=== PATIENT | female | born 1940 | race Two or more races ===

== ENCOUNTER → 2019-08-15 | Outpatient (CLI) | payer OTHER, MEDICAID | END | disposition home or self-care (01) | LOC: Rad HDHVI 14:12 | PROVIDERS: ATTEND Internal Medicine | DX: I07.1 Rheumatic tricuspid insufficiency (principal); I49.9 Cardiac arrhythmia, unspecified; R07.9 Chest pain, unspecified; R00.2 Palpitations | CPT/HCPCS: 93306 ==

== ENCOUNTER → 2020-10-01 | Outpatient (CLI) | payer OTHER, MEDICAID | END | disposition home or self-care (01) | LOC: Rad HDHVI 13:35 | PROVIDERS: ATTEND Internal Medicine | DX: I07.1 Rheumatic tricuspid insufficiency (principal); I49.9 Cardiac arrhythmia, unspecified; R00.2 Palpitations | CPT/HCPCS: 93306 ==

== ENCOUNTER → 2020-10-07 | Outpatient (CLI) | payer OTHER, MEDICAID ==
[~2020-10-07] VITALS: Ht 157.5 cm; Wt 54.4 kg
[~2020-10-07] MED LIST: ADENOSINE 46 MG in GIVE UN-DILUTED 0 ML IV ONE; ADENOSINE 90 MG/30 ML INJ IV ONE
== END | disposition home or self-care (01) ==
LOC: Rad HDHVI 12:54
PROVIDERS: ATTEND Internal Medicine
DX: R00.2 Palpitations (principal); R07.9 Chest pain, unspecified; R06.02 Shortness of breath; I10 Essential (primary) hypertension; I49.9 Cardiac arrhythmia, unspecified
CPT/HCPCS: 78452; 93005; 96374; 96375; A9500; J0153

== ENCOUNTER 2021-11-11 11:30 | Emergency (ER) | payer OTHER, MEDICAID ==
[~2021-11-11] VITALS: Ht 167.6 cm; Wt 49.9 kg
[2021-11-11 12:31] LABS: Basophils # (auto) 0.1 10 ^3/uL (0-0.2); Basophils % (auto) 1.2 % (0.0-2.0); Eosinophils # (auto) 0.1 10 ^3/uL (0-0.8); Eosinophils % (auto) 1.7 % (0.0-7.0); Hematocrit 44.7 % (36.0-46.0); Hemoglobin 14.8 g/dL (12.2-16.2); Lymphocytes # (auto) 1.2 10 ^3/uL (0.4-5.4); Lymphocytes % (auto) 16.9 % (10.0-50.0); Mean Corpuscular Hemoglobin 31.3 pg (28.0-32.0); Mean Corpuscular Hgb Conc. 33.2 g/dL (32.0-36.0); Mean Corpuscular Volume 94.1 fL (80.0-100.0); Monocytes # (auto) 0.9 10 ^3/uL (0-1.3); Monocytes % (auto) 13.1 % (0.0-12.0); Neutrophils # (auto) 4.8 10 ^3/uL (1.6-8.6); Neutrophils % (auto) 67.1 % (37.0-80.0); Nucleated Red Blood Cells % 0.1 %; Red Blood Cells 4.75 10^6/uL (4.0-5.20); Red Cell Distribution Width 14.6 % (11.8-14.3); White Blood Cell 7.2 10^3/uL (4.4-10.8)
[2021-11-11 12:49] LABS: Albumin 3.6 g/dL (3.4-5.0); BUN/Creatinine Ratio 16.7; Calcium 9.1 mg/dL (8.5-10.1); Potassium 4.1 mmol/L (3.5-5.1)
[2021-11-11 12:51] LABS: Bilirubin, Total 1.5 mg/dL (0.2-1.0); Total Protein 7.7 g/dL (6.4-8.2)
[2021-11-11 12:56] LABS: Amylase 49 U/L (25-115); Lipase 101 U/L (73-393)
[2021-11-11] MEDS ORDERED: BACL10TA PO (14:27)
[2021-11-11 14:33] VITALS: BP 163/80
== END 2021-11-11 14:42 | disposition home or self-care (01) ==
LOC: ER 11:30
DX: S29.012A Strain of muscle and tendon of back wall of thorax, initial encounter (principal); Z88.8 Allergy status to other drugs, medicaments and biological substances; X58.XXXA Exposure to other specified factors, initial encounter; Y93.89 Activity, other specified; Y92.89 Other specified places as the place of occurrence of the external cause; Y99.8 Other external cause status
CPT/HCPCS: 36415; 71045; 80053; 82150; 83690; 84484; 85025; 93005

== ENCOUNTER 2021-12-30 23:17 | Emergency (ER) | payer OTHER, MEDICAID ==
[~2021-12-30] VITALS: Ht 157.5 cm; Wt 52.2 kg
[~2021-12-30 23:17] MED LIST changes: -ADENOSINE 46 MG in GIVE UN-DILUTED 0 ML IV ONE; -ADENOSINE 90 MG/30 ML INJ IV ONE; +BACL10TA PO
[2021-12-31 01:31] LABS: Basophils # (auto) 0.1 10 ^3/uL (0-0.2); Basophils % (auto) 0.5 % (0.0-2.0); Eosinophils # (auto) 0.1 10 ^3/uL (0-0.8); Eosinophils % (auto) 0.8 % (0.0-7.0); Hemoglobin 14.7 g/dL (12.2-16.2); Lymphocytes # (auto) 1.2 10 ^3/uL (0.4-5.4); Mean Corpuscular Hemoglobin 31.9 pg (28.0-32.0); Mean Corpuscular Hgb Conc. 33.5 g/dL (32.0-36.0); Mean Corpuscular Volume 95.3 fL (80.0-100.0); Monocytes # (auto) 0.4 10 ^3/uL (0-1.3); Monocytes % (auto) 3.4 % (0.0-12.0); Neutrophils % (auto) 85.3 % (37.0-80.0); Red Blood Cells 4.62 10^6/uL (4.0-5.20); Red Cell Distribution Width 15.3 % (11.8-14.3); White Blood Cell 11.8 10^3/uL (4.4-10.8)
[2021-12-31 01:49] LABS: Albumin 3.5 g/dL (3.4-5.0); Calcium 8.9 mg/dL (8.5-10.1)
[2021-12-31 01:52] LABS: Bilirubin, Total 0.9 mg/dL (0.2-1.0); Total Protein 8.1 g/dL (6.4-8.2)
[2021-12-31] MEDS ORDERED: METR500T PO (01:53)
[2021-12-31] MEDS ORDERED: CEPH-509 PO (01:53)
[2021-12-31] MEDS ORDERED: ALUM & MAG HYDROX-SIMETH LIQ(MAALOX) 30 ML PO ONE (03:15)
[2021-12-31] MEDS ORDERED: LIDOCAINE VISCOUS 2% 15ML UD PO ONE (03:15)
[2021-12-31] MEDS ORDERED: DONNATAL 5ml ORAL Elix (BELLADONNA ALK-PHENOBARB) PO ONE (03:15)
[2021-12-31] MEDS ORDERED: PANT40TA2 PO (03:17)
[2021-12-31 04:05] VITALS: BP 167/97
== END 2021-12-31 04:16 | disposition home or self-care (01) ==
LOC: ER 23:17
DX: K52.9 Noninfective gastroenteritis and colitis, unspecified (principal); K29.70 Gastritis, unspecified, without bleeding; Z79.899 Other long term (current) drug therapy; Z88.8 Allergy status to other drugs, medicaments and biological substances
CPT/HCPCS: 36415; 74176; 80053; 85025; 93005

== ENCOUNTER 2022-12-13 13:59 | Emergency (ER) | payer OTHER, MEDICAID ==
[~2022-12-13] VITALS: Ht 160 cm; Wt 65.7 kg
[~2022-12-13 13:59] MED LIST changes: +CEPH-509 PO; +METR500T PO; +PANT40TA2 PO
[2022-12-13] MEDS ORDERED: IOHEXOL 350 MG/ML 100ML IJ ONE (14:36)
[2022-12-13 14:41] LABS: Basophils # (auto) 0.1 10 ^3/uL (0-0.2); Eosinophils # (auto) 0.3 10 ^3/uL (0-0.8); Eosinophils % (auto) 3.8 % (0.0-7.0); Hematocrit 44.6 % (36.0-46.0); Lymphocytes # (auto) 2.7 10 ^3/uL (0.4-5.4); Lymphocytes % (auto) 32.2 % (10.0-50.0); Mean Corpuscular Hemoglobin 31.8 pg (28.0-32.0); Mean Corpuscular Hgb Conc. 33.6 g/dL (32.0-36.0); Mean Corpuscular Volume 94.6 fL (80.0-100.0); Neutrophils # (auto) 4.3 10 ^3/uL (1.6-8.6); Nucleated Red Blood Cells % 0.1 %; Red Blood Cells 4.71 10^6/uL (4.0-5.20); Red Cell Distribution Width 14.3 % (11.8-14.3); White Blood Cell 8.4 10^3/uL (4.4-10.8)
[2022-12-13 14:44] LABS: Urine Bacteria FEW /hpf (None Seen); Urine Blood TRACE /uL (Negative); Urine Specific Gravity 1.009 (1.001-1.035); Urine WBC 34 /hpf (0 - 5)
[2022-12-13 14:53] LABS: INR 0.97 (0.9-1.15); Partial Thromboplastin Time 26.9 sec (24.6-33.4)
[2022-12-13 15:06] LABS: Albumin 3.6 g/dL (3.4-5.0); Calcium 8.7 mg/dL (8.5-10.1); Potassium 4.5 mmol/L (3.5-5.1)
[2022-12-13 15:09] LABS: Bilirubin, Total 1.1 mg/dL (0.2-1.0); Magnesium 2.4 mg/dL (1.6-2.6); Total Protein 7.7 g/dL (6.4-8.2)
[2022-12-13 16:05] VITALS: BP 142/72
== END 2022-12-13 15:26 | disposition short-term general hospital (02) ==
LOC: ER 13:59
DX: I99.8 Other disorder of circulatory system (principal); I10 Essential (primary) hypertension
CPT/HCPCS: 36415; 70450; 70496; 71045; 80053; 81001; 83735; 83880; 84484; 85025; 85610; 85730; 93005; 99285; Q9967

== ENCOUNTER → 2023-09-22 | Outpatient (CLI) | payer OTHER ==
[~2023-09-22] VITALS: Ht 154.9 cm; Wt 54.4 kg
[~2023-09-22] MED LIST changes: +ADENOSINE 46 MG in GIVE UN-DILUTED 0 ML IV ONE; +ADENOSINE 90 MG/30 ML INJ IV ONE
== END | disposition home or self-care (01) ==
LOC: Rad HDHVI 14:04
PROVIDERS: ATTEND Internal Medicine Cardiovascular Disease
DX: R07.89 Other chest pain (principal); R00.2 Palpitations; I10 Essential (primary) hypertension; E78.5 Hyperlipidemia, unspecified; Z82.49 Family history of ischemic heart disease and other diseases of the circulatory system
CPT/HCPCS: 78452; 93005; 96374; 96375; A9500; J0153